=== PATIENT | female | born 1955 ===

== ENCOUNTER 2021-06-06 06:08 | Emergency (ER) | payer BC, OTHER ==
[~2021-06-06] VITALS: Ht 149.9 cm; Wt 63.5 kg
[2021-06-06 07:53] LABS: Basophils # (auto) 0.1 10 ^3/uL (0-0.2); Basophils % (auto) 0.8 % (0.0-2.0); Eosinophils # (auto) 0.4 10 ^3/uL (0-0.8); Eosinophils % (auto) 7.1 % (0.0-7.0); Hematocrit 42.6 % (36.0-46.0); Hemoglobin 13.9 g/dL (12.2-16.2); Lymphocytes # (auto) 2.1 10 ^3/uL (0.4-5.4); Lymphocytes % (auto) 33.7 % (10.0-50.0); Mean Corpuscular Hemoglobin 28.7 pg (28.0-32.0); Mean Corpuscular Hgb Conc. 32.6 g/dL (32.0-36.0); Mean Corpuscular Volume 88.2 fL (80.0-100.0); Monocytes # (auto) 0.4 10 ^3/uL (0-1.3); Monocytes % (auto) 6.8 % (0.0-12.0); Neutrophils # (auto) 3.1 10 ^3/uL (1.6-8.6); Neutrophils % (auto) 51.6 % (37.0-80.0); Nucleated Red Blood Cells % 0.1 %; Red Blood Cells 4.83 10^6/uL (4.0-5.20); Red Cell Distribution Width 14.3 % (11.8-14.3); White Blood Cell 6.1 10^3/uL (4.4-10.8)
[2021-06-06 08:03] LABS: Albumin 3.4 g/dL (3.4-5.0); Potassium 4.8 mmol/L (3.5-5.1)
[2021-06-06 08:10] LABS: BUN/Creatinine Ratio 19.1; Bilirubin, Total 0.5 mg/dL (0.2-1.0); Total Protein 7.5 g/dL (6.4-8.2)
[2021-06-06] MEDS ORDERED: ALBUTEROL SULF 2.5 MG/0.5ML(0.5%) NEB SOLN NEB ONE (10:45)
[2021-06-06] MEDS ORDERED: IPRATROPIUM BROM 0.5 MG/2.5ML INH SOL NEB ONE (10:45)
[2021-06-06] MEDS ORDERED: ALBU108A5 IN (10:50)
[2021-06-06] MEDS ORDERED: LEVO500T31 PO (10:50)
[2021-06-06 11:12] VITALS: BP 149/83
== END 2021-06-06 11:29 | disposition home or self-care (01) ==
LOC: ER 06:08
DX: J20.9 Acute bronchitis, unspecified (principal); J98.01 Acute bronchospasm; F12.10 Cannabis abuse, uncomplicated
CPT/HCPCS: 36415; 71045; 80053; 83880; 84484; 85025; 85379; 93005; 94640; 99285; J7644

== ENCOUNTER 2021-07-22 10:19 | Emergency (ER) | payer BC ==
[~2021-07-22] VITALS: Ht 149.9 cm; Wt 69.9 kg
[~2021-07-22 10:19] MED LIST: ALBU108A5 IN; LEVO500T31 PO
[2021-07-22 11:39] LABS: Basophils # (auto) 0 10 ^3/uL (0-0.2); Basophils % (auto) 0.5 % (0.0-2.0); Eosinophils # (auto) 0.2 10 ^3/uL (0-0.8); Eosinophils % (auto) 3.5 % (0.0-7.0); Hematocrit 43.3 % (36.0-46.0); Hemoglobin 14.3 g/dL (12.2-16.2); Lymphocytes # (auto) 1.7 10 ^3/uL (0.4-5.4); Lymphocytes % (auto) 29.2 % (10.0-50.0); Mean Corpuscular Hemoglobin 29.4 pg (28.0-32.0); Mean Corpuscular Volume 89.1 fL (80.0-100.0); Monocytes # (auto) 0.4 10 ^3/uL (0-1.3); Monocytes % (auto) 7.6 % (0.0-12.0); Neutrophils # (auto) 3.5 10 ^3/uL (1.6-8.6); Neutrophils % (auto) 59.2 % (37.0-80.0); Nucleated Red Blood Cells % 0.1 %; Red Blood Cells 4.86 10^6/uL (4.0-5.20); Red Cell Distribution Width 15.3 % (11.8-14.3); White Blood Cell 5.9 10^3/uL (4.4-10.8)
[2021-07-22 11:55] LABS: Potassium 4.3 mmol/L (3.5-5.1)
[2021-07-22 12:12] LABS: Albumin 3.8 g/dL (3.4-5.0); BUN/Creatinine Ratio 8.3; Bilirubin, Total 0.7 mg/dL (0.2-1.0); Calcium 9.4 mg/dL (8.5-10.1); Total Protein 7.6 g/dL (6.4-8.2)
[2021-07-22 13:56] VITALS: BP 122/84
== END 2021-07-22 14:01 | disposition home or self-care (01) ==
LOC: ER 10:19
DX: R07.89 Other chest pain (principal); J98.01 Acute bronchospasm
CPT/HCPCS: 36415; 71045; 80053; 84484; 85025; 93005